=== PATIENT | female | born 1960 | race Caucasian/White ===

== ENCOUNTER 2018-03-18 08:39 | Emergency (ER) | payer OTHER ==
--- NOTE | 2018-03-18 09:38 | RAD ---
RIGHT FOOT 3 VIEWS: Date: 03/18/18 HISTORY: Tenderness right big toe. Pain. COMPARISON: None. FINDINGS: There appears to be a fracture of the tuft of the distal phalanx of great toe without significant dis placement. Also, likely a toenail injury. IMPRESSION: Nondisplaced fracture of distal tuft of great toe. POS: [facility]
== END 2018-03-18 09:43 | disposition home or self-care (01) ==
LOC: NAV ERS 08:39
DX: S92.424A Nondisplaced fracture of distal phalanx of right great toe, initial encounter for closed fracture (principal); I10 Essential (primary) hypertension; F41.9 Anxiety disorder, unspecified; F32.9 Major depressive disorder, single episode, unspecified; Z79.899 Other long term (current) drug therapy; W20.8XXA Other cause of strike by thrown, projected or falling object, initial encounter
CPT/HCPCS: 28490

== ENCOUNTER 2021-07-17 15:32 | Emergency (ER) | payer OTHER ==
[2021-07-17] MEDS ORDERED: Acetaminophen 500 MG TAB ONE (15:57)
[2021-07-17] MEDS ORDERED: Ketorolac Tromethamine 30 MG/ML VIAL ONE (15:57)
== END 2021-07-17 16:10 | disposition home or self-care (01) ==
LOC: NAV ERS 15:32
DX: S83.91XA Sprain of unspecified site of right knee, initial encounter (principal); I10 Essential (primary) hypertension; W11.XXXA Fall on and from ladder, initial encounter
CPT/HCPCS: 96372; J1885

== ENCOUNTER 2023-02-01 12:26 | Emergency (ER) | payer OTHER ==
[2023-02-01] MEDS ORDERED: traMADol HCl 50 MG TAB ONE (14:03)
== END 2023-02-01 14:20 | disposition home or self-care (01) ==
LOC: NAV ERS 12:26
DX: M25.561 Pain in right knee (principal); I10 Essential (primary) hypertension